=== PATIENT | female | born 1980 | race Hispanic/Latino ===

== ENCOUNTER 2020-03-17 10:57 | Emergency (ER) | payer MEDICAID ==
[2020-03-17] MEDS ORDERED: INSULIN REGULAR, HUMAN 100 UNIT/ML 3ML VIAL ONE (11:04)
[2020-03-17] MEDS ORDERED: ALTEPLASE 100 MG INJ KIT ONE (11:09)
[2020-03-17] MEDS ORDERED: DEXTROSE 50% IN WATER (25GM) 50 ML SYRINGE IV ONE (11:26)
[2020-03-17] MEDS ORDERED: CALCIUM CHLORIDE 1,000 MG/10 ML SYRINGE IV ONE (11:26)
[2020-03-17] MEDS ORDERED: SODIUM BICARB 8.4% 50 MEQ/50 ML SYRINGE IV ONE (11:26)
[2020-03-17] MEDS ORDERED: EPINEPHrine 1 MG/10 ML SYRINGE ONE (11:26)
--- NOTE | 2020-03-17 11:45 | Emergency Department Report ---
ED General Adult HPI - General Chief complaint: Cardiac Arrest/CPR Stated complaint: CARDIAC ARREST Time Seen by Provider: 03/17/20 11:30 Source: EMS Mode of arrival: Stretcher Limitations: Physical Limitation - History of Present Illness Initial comments: Patient presents to the emergency department via EMS in cardiac arrest. The patient arrives intubated with chest compressions being done. Per EMS the initial call was for difficulty in breathing/asthma attack. Upon arrival to patient states she has had shortness of breath 15 minutes prior to the arrival stated she had a history of asthma. Per EMS they asked the patient if she had a diagnosis of asthma she said no but stated she had 3 episodes of this type of shortness of breath previously but the last 3 times she passed out. Due to after chest compressions and with the presence of the ET tube the patient was able to add to the history. -: Sudden Severity scale (0 -10): 0 Consistency: constant Improves with: none Worsens with: none Associated Symptoms: denies other symptoms Treatments Prior to Arrival: none ED Review of Systems ROS: Stated complaint: CARDIAC ARREST Other details as noted in HPI Comment: Unobtainable due to pts medical conditions ED Physical Exam - General General appearance: other (Unresponsive and intubated) - Head Head exam: Present: atraumatic, normocephalic - Eye Eye exam: Present: other (fixed and no corneal reflex) - ENT ENT exam: Present: normal exam - Neck Neck exam: Present: normal inspection - Respiratory Respiratory exam: Present: other (Bilateral breath sounds with bagging) - Cardiovascular Cardiovascular Exam: Present: other (Asystole) - GI/Abdominal GI/Abdominal exam: Present: soft. Absent: distended - Extremities Exam Extremities exam: Present: other (IO present in the right lower extremity) - Neurological Exam Neurological exam: Present: other (GCS T3) - Psychiatric Psychiatric exam: Present: other (Unable to assess due to the patient's condition) - Skin Skin exam: Present: warm, dry, intact, normal color. Absent: rash ED Medical Decision Making - Medical Decision Making ACLS protocol follow-up Please see code sheet Time of is 11:26 AM Spoke to the patient's daughter and informed her of the unfortunate of her mother The daughter discussed with us that for the last 3 days (including today) the patient has had shortness of breath and then passed out. They contacted EMS each time and upon their evaluation the decision was made not for the patient to be transported to the hospital Critical care attestation.: If time is entered above; I have spent that time in minutes in the direct care of this critically ill patient, excluding procedure time. ED Disposition Clinical Impression: Cardiac arrest Disposition: DC-20 Is pt being admited?: No Does the pt Need Aspirin: No Referrals: PRIMARY CARE, [Primary Care Provider] - 3-5 Days Time of Disposition: 11:26
[2020-03-17] MEDS ORDERED: ALTEPLASE 2 MG INJ IV ONE (12:27)
== END 2020-03-17 15:53 ==
LOC: ED 10:57
DX: I46.9 Cardiac arrest, cause unspecified (principal)
CPT/HCPCS: 37195; 37212; 82962; 92950; 99285; J0171; J2997; 96374; J1815